=== PATIENT | female | born 1945 | race Caucasian/White ===

== ENCOUNTER → 2020-04-08 | Outpatient (CLI) | payer MEDICARE, BC ==
[~2020-04-08] MED LIST: 2% VISCOUS LIDOCAINE PO; CAND32TA8 PO; ENOX100D9 SQ; GABA300S2 PO; HYDR15SO8 PO; LORA0.5T PO; NF-ESOM40C PO; OLAP50CA PO; PSEU120T17 PO; SIMV20TA26 PO; WARF3TAB56 PO; [UNRECOGNIZED DRUG - CODE] PO
--- NOTE | 2020-04-08 15:15 | Diagnostic Imaging Report ---
INDICATION: Fell, low back pain. EXAMINATION: Lumbar spine at 2:59 p.m. AP, lateral and spot lateral views were obtained. COMPARISON: There is no prior study available for comparison. FINDINGS: The lateral view shows postsurgical changes consistent with posterior fusion of L4 and L5. The bilateral pedicle screw seems to be in good position.. The interbody device is perhaps slightly more posteriorly positioned than usually seen. There is very slight buckling of the ventral cortex of L3. This finding could be long-standing in nature. The possibility that there is a mild acute fracture in this area should still be considered. If further imaging is desired, then MRI would be recommended. The other vertebral bodies show no sign of an acute injury. The other intervertebral spaces are fairly well maintained although there is mild narrowing at L3-L4. There is no sign of a paraspinal mass. There is a 1.1 cm calcification overlying the left renal contour. This could be intrarenal. There is moderate sclerosis of the sacroiliac joints. IMPRESSION: 1. There is a question of mild fracture involving the ventral cortex of L3. If further imaging is desired, then MRI would be recommended. 2. There is no acute bony abnormality identified for certain. 3. There are postsurgical changes at L5-S1. Dictated by: Dictated on workstation # [id number]
== END ==
LOC: RAD FS 14:43
PROVIDERS: ATTEND Nurse Practitioner Family
DX: M54.5 Low back pain (principal); Z98.890 Other specified postprocedural states; Z98.1 Arthrodesis status
CPT/HCPCS: 72100

== ENCOUNTER → 2020-04-12 | Outpatient (CLI) | payer MEDICARE, BC ==
--- NOTE | 2020-04-12 13:58 | Diagnostic Imaging Report ---
Procedure: CT lumbar spine without contrast. Technique: Multiple contiguous axial images were obtained through the lumbar spine without the use of intravenous contrast. Sagittal and coronal reformations were then performed. Auto Exposure Controls were utilized during the CT exam to meet ALARA standards for radiation dose reduction. Date: April 12, 2020. Indication: 74-year-old female, fall 3 days ago. Severe back pain. History of back surgery 2 months ago. Comparison: Lumbar spine radiographs April 08, 2020. Findings: There is posterior spinal fusion hardware spanning L4-L5. The hardware is grossly intact. There is no abnormal lucency surrounding the fixation screws. There is disc spacer material at L4-L5. There is a superior endplate concavity of L3 with visible fracture line. There is no particular prominent vertebral body height loss. There is no retropulsed fracture fragment. There is no fracture involvement of the posterior elements. There is no additional identified fracture. There is soft tissue gas in the region of the postoperative change which could relate to recent procedure. Correlation is recommended. The sacroiliac joints are unremarkable in appearance. There are mild bilateral facet degenerative changes at L2-L3. There is mild disc height loss at L3-L4. There is moderate disc height loss at L5-S1. CT is limited for assessment of disc pathology as well as non-bony additional causes of pathology in the spinal canal. There is an inferior vena cava filter. There is a nonobstructing left renal stone. There are atherosclerotic calcifications. Impression: 1. Very likely acute mild compression deformity of the L3 vertebral body with minimal vertebral body height loss. No retropulsed fracture fragment. 2. Posterior spinal fusion hardware spanning L4-L5 without identified complication. Dictated by: Dictated on workstation # [id number]
== END ==
LOC: RAD FS 11:08
PROVIDERS: ATTEND Nurse Practitioner
DX: M48.061 Spinal stenosis, lumbar region without neurogenic claudication (principal); Z98.1 Arthrodesis status; M47.816 Spondylosis without myelopathy or radiculopathy, lumbar region; M43.17 Spondylolisthesis, lumbosacral region
CPT/HCPCS: 72131

== ENCOUNTER → 2020-06-14 | Outpatient (CLI) | payer MEDICARE, BC ==
[2020-06-14 13:35] LABS: HEMATOCRIT 28 % (35-52); HEMOGLOBIN 9.1 G/DL (11.5-16.0); MEAN CORPUSCULAR HEMOGLOBIN 34 PG (25-34); MEAN CORPUSCULAR HGB CONC 33 G/DL (32-36); MEAN CORPUSCULAR VOLUME 105 FL (80-99); WHITE BLOOD COUNT 4.8 10^3/uL (4.3-11.0)
[2020-06-14 13:36] LABS: BASOPHILS % (AUTO) 0 % (0-10); EOSINOPHILS % (AUTO) 2 % (0-10); LYMPHOCYTES % (AUTO) 11 % (12-44); MEAN PLATELET VOLUME 10.5 FL (7.4-10.4); MONOCYTES % (AUTO) 10 % (0-12); NEUTROPHILS % (AUTO) 75 % (42-75); PLATELET COUNT 262 10^3/uL (130-400)
[2020-06-14 13:37] LABS: EOSINOPHILS # (AUTO) 0.1 10^3/uL (0.0-0.3); LYMPHOCYTES # (AUTO) 0.5 X 10^3 (1.0-4.0); MONOCYTES # (AUTO) 0.5 X 10^3 (0.0-1.0); NEUTROPHILS # (AUTO) 3.6 X 10^3 (1.8-7.8)
[2020-06-14 14:07] LABS: ALBUMIN 3.6 GM/DL (3.2-4.5); BILIRUBIN,TOTAL 0.5 MG/DL (0.1-1.0); CALCIUM 9.7 MG/DL (8.5-10.1); CREATININE SERUM 1.33 MG/DL (0.60-1.30); MAGNESIUM 1.6 MG/DL (1.6-2.4); POTASSIUM 4.1 MMOL/L (3.6-5.0); TOTAL PROTEIN 6.3 GM/DL (6.4-8.2)
== END ==
LOC: IHC 13:05
PROVIDERS: ATTEND Internal Medicine Hematology & Oncology
DX: E46 Unspecified protein-calorie malnutrition (principal); I10 Essential (primary) hypertension; D53.9 Nutritional anemia, unspecified; Z85.43 Personal history of malignant neoplasm of ovary
CPT/HCPCS: 80053; 83735; 85025; 86304